=== PATIENT | male | born 1995 | race Two or more races ===

== ENCOUNTER 2017-02-13 16:24 | Emergency (ER) | payer MEDICAID ==
[~2017-02-13] VITALS: Ht 190.5 cm; Wt 139.8 kg
[2017-02-13 16:30] VITALS: BP 150/92
[2017-02-13] MEDS ORDERED: LIDOCAINE 1%, 10ML INFIL ONE (18:00)
[2017-02-13] MEDS ORDERED: LIDOCAINE 1%, 20ML ONE (18:06)
[2017-02-13] MEDS ORDERED: BACITRACIN ZINC OINT 500U/GM, 0.9 GM ONE (18:34)
== END 2017-02-13 19:10 ==
LOC: ED 17:36
DX: S61.211A Laceration without foreign body of left index finger without damage to nail, initial encounter (principal); W45.8XXA Other foreign body or object entering through skin, initial encounter; Y93.G3 Activity, cooking and baking; Y92.89 Other specified places as the place of occurrence of the external cause; Y99.8 Other external cause status
CPT/HCPCS: 12001